=== PATIENT | female | born 1975 | race Caucasian/White ===

== ENCOUNTER 2016-09-03 22:46 | Inpatient (IN) | payer OTHER ==
--- NOTE | ~2016-09-03 | HP ---
Unit #: [id number] #: [id number] Patient: BESS SANDY [id number] [facility] [address] [place] [address] [id number] I MR#: [id number] NAME: BESS SANDY ROOM: 61 Age: 40 Sex: F Admission Date: 09/03/2016 : 1975 Attending Physician: Serge Madrigal Family Admitting Physician: Serge Madrigal Family Primary Care Physician: Bharathi Pereira M.D. HISTORY AND PHYSICAL HISTORY OF PRESENT ILLNESS Bess is a 40 year old admitted to [address] [place] [address] because of her drug use. She smokes spice. 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 PAST SURGICAL HISTORY Nothing reported ALLERGIES No known drug allergies. SOCIAL HISTORY Smokes one pack per day. Drinks alcohol and has a history of illicit drug use to include spice. FAMILY HISTORY Medically noncontributory. REVIEW OF SYSTEMS CONSTITUTIONAL: No fever or chills. HEENT: Denies any sore throat, ear pain or runny nose. CARDIOVASCULAR: Denies chest pain, irregular heart rhythm or palpitations. CHEST: Denies shortness of breath or cough. No hemoptysis. GASTROINTESTINAL: Denies nausea, vomiting, diarrhea or chronic constipation. ENDOCRINE: Denies history of increased thirst or urination. No recent significant weight loss or gain. GENITOURINARY: Denies dysuria, frequency, or hematuria. SKIN: Denies any rashes. HEMATOLOGIC: Denies history of increased bleeding or bruising. MUSCULOSKELETAL: Denies any hot, swollen joints. No generalized muscle pain. NEUROLOGIC: Denies problems with vision or speech. No frequent, severe headaches. No numbness, tingling or weakness in any extremities. Denies loss of bladder or bowel control. CURRENT MEDICATIONS 1. Remeron 30 mg q.h.s. 2. Nicotine patch 14 mg q day 3. Milk of Magnesia p.r.n. Unit #: [id number] #: [id number] Patient: BESS SANDY 4. Maalox p.r.n. 5. Tylenol p.r.n. PHYSICAL EXAMINATION GENERAL: Alert, obese, in no apparent distress. VITAL SIGNS: Blood pressure 110/66, heart rate 64, respirations 16, temperature 98.6. WEIGHT: 170 pounds. HEIGHT: 5'5". SKIN: Warm and dry without rash or lesion. HEENT: Normocephalic. TMs not viewed. Oral and nasal passages clear. Conjunctivae clear. Pupils equal, round and reactive to light and accommodation. Extraocular movements intact. NECK: Supple without lymphadenopathy or thyromegaly. HEART: Regular rate and rhythm without murmur. LUNGS: Clear. ABDOMEN: Soft, nontender. : Not done. EXTREMITIES: No evidence of cyanosis, clubbing or edema. Moves all extremities without focal deficit. NEUROLOGICAL: Grossly within normal limits. Cranial Nerves: II: Visual pascual are intact. III, IV AND : Extraocular movements are intact. Pupils are equal, round and reactive to light. V: Facial sensation is grossly normal. VII: Facial movements and expression are normal. VIII: Auditory acuity grossly intact. IX, X: Uvula is midline. Phonation is normal. XI: Patient shrugs shoulders and turns head normally. XII: Tongue protrudes in the midline. Sensory and Motor Function: Sensory and motor sensation is grossly normal. Motor: moves all extremities well. Coordination: Gait is normal. Deep Tendon Reflexes: Intact. IMPRESSION Psychiatric admission RECOMMENDATIONS PSYCHIATRIC: Per psychiatrist. MEDICAL: I see no contraindications to participating in facility's activities. MEDICAL PROGNOSIS Good. MEDICAL CONDITION Stable. Dictated by... Amelia Parks P.A.-C. for Roc Leo/deyanira TD: 09/04/2016 20:52 Unit #: [id number] #: [id number] Patient: BESS SANDY JOB #: [id number] HISTORY AND PHYSICAL Page 1 of 1 X Amelia Parks HISTORY AND PHYSICAL
--- NOTE | ~2016-09-03 | DS ---
Unit #: [id number] #: [id number] Patient: BESS SANDY [id number] [facility] [address] [place] [address] [id number] I MR#: [id number] NAME: BESS SANDY ROOM: 61 Age: 40 Sex: F Admission Date: 09/03/2016 : 1975 Discharge Date: 09/07/2016 Attending Physician: Bharathi Pereira M.D. Primary Care Physician: Primary Care Physician No DISCHARGE SUMMARY REASON FOR ADMISSION Bess is a 40-year-old woman who reports she has been off her psychiatric medications and has been using a street hallucinogen known as serenity. She was unable to contract for safety and was admitted for stabilization. DIAGNOSTIC STUDIES LABORATORY RESULTS: Please see hospital chart. HOSPITAL COURSE The patient was admitted and placed on suicide precautions. Remeron 30 mg at bedtime was added for depression and she was placed on Bactrim DS for infection. Her RPR was positive, but her FTA was negative. She participated appropriately in unit groups and activities and on the date of discharge, she was able to contract for safety in the outpatient setting. DISCHARGE DIAGNOSES AXIS I: Major depression, stimulant abuse. AXIS II: No diagnosis. AXIS III: Possible ringworm. AXIS IV: AXIS V: DISCHARGE INSTRUCTIONS Follow up with [facility] and primary care physician. She was also offered followup through [facility] in [place], [place]. DISCHARGE MEDICATIONS Remeron 30 mg at bedtime for depression and Bactrim DS one tablet b.i.d. until gone for infection. CONDITION AT DISCHARGE Fair. PROGNOSIS Fair. DIET AND ACITIVITY Ad wili. Unit #: [id number] #: [id number] Patient: BESS SANDY Dictated by... Bharathi Pereira M.D. [facility]/[place] TD: 10/22/2016 01:01 JOB #: [id number] DISCHARGE SUMMARY Page 1 of 1 X Bharathi Pereira MD DISCHARGE SUMMARY
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
--- NOTE | ~2016-09-03 | CO ---
Unit #: [id number] #: [id number] Patient: BESS SANDY [id number] [facility] [address] [place] [address] [id number] I MR#: [id number] NAME: BESS SANDY ROOM: [facility] Age: 40 Sex: F Admission Date: 09/03/2016 : 1975 Attending Physician: Bharathi Pereira M.D. Consultation Date: 09/05/2016 CONSULTATION REPORT SUBJECTIVE Bess is a 40-year-old, admitted because of her drug use. She smokes spice. Upon admission, her RPR was positive. FTA is pending as of 1400 on 09/07/2016. Admission urinalysis showed 4+ bacteria and 10 to 25 wbc's. We treated her with Bactrim DS one p.o. b.i.d. x7 days. In addition, Bess complained of pain and blistering on the end of her tongue. At one point, she put ice on the tip of her tongue. By her report, this reduced the redness and blister, but left a white spot. Upon exam, there is approximately a pea-sized white area on the tip of her tongue with a significant blister to the underside. This area is thought to be caused by her drug use. She smokes spice. She admits that she is frequently so high, she does not even know what she is doing. She has Tylenol p.r.n. She knows that if this does not resolve in the next 48 to 72 hours, then she will need to follow up with her PCP/dentist for further evaluation. Dictated by... Isis Emanuel/lowell TD: 09/07/2016 19:28 JOB #: [id number] CONSULTATION REPORT Page 1 of 1 X Amelia Parks CONSULTATION REPORT
[2016-09-04 09:35] LABS: BASOPHIL# 0.1 X10e3 (0-0.3); BASOPHIL% 0.7 % (0-2.5); EOSINOPHIL% 0.4 % (0.0-7.0); HEMATOCRIT 36.6 % (35.0-45.0); HEMOGLOBIN 11.6 gm/dL (12.0-16.0); LYMPHOCYTE# 3.2 X10e3 (1.0-3.5); LYMPHOCYTE% 41.6 % (17.0-45.0); MEAN CORPUSCULAR HGB CONC 31.6 g/dL (30-36); MEAN PLATELET VOLUME 9.4 FL (6.5-11.5); MONOCYTE# 0.5 X10e3 (0-1.0); MONOCYTE% 7.2 % (3.0-12.0); NEUTROPHIL# 3.8 X10e3 (1.5-7.1); NEUTROPHIL% 50.1 % (40-75); PLATELET COUNT 262 X10e3 (140-420); RED BLOOD COUNT 4.82 X10e (3.90-5.30); RED CELL DISTRIBUTION WIDTH 20.1 % (11.0-15.5); WHITE BLOOD COUNT 7.6 X10e3 (4.0-10.5)
[2016-09-04 09:38] LABS: DIFF IND NO
[2016-09-04 09:44] LABS: URINE APPEARANCE TURBID; URINE BILIRUBIN NEG (NEG); URINE BLOOD 1+ (NEG); URINE COLOR YELLOW; URINE GLUCOSE NEG (NEG); URINE KETONE 1+ (NEG); URINE LEUKOCYTE ESTERASE 2+ (NEG); URINE NITRATE NEG (NEG); URINE PH 6.5 (5-8); URINE PROTEIN NEG (NEG); URINE SPECIFIC GRAVITY 1.025 (1.003-1.035)
[2016-09-04 09:46] LABS: URINE BACTERIA AUWI 4+ (NEGATIVE); URINE SQUAMOUS EPITHELIAL CELL MOD /[HPF]
[2016-09-04 09:56] LABS: THYROID STIMULATING HORMONE 1.87 uIU/ml (0.34-5.60)
[2016-09-04 10:04] LABS: FREE THYROXIN (T4) 0.87 ng/dL (0.58-1.64)
[2016-09-04 10:25] LABS: ALBUMIN SERUM 4.3 g/dL (3.5-5.0); BILIRUBIN,TOTAL 0.6 mg/dL (0.2-2.0); BUN/CREATININE RATIO 12.85; CALCIUM SERUM 9.5 mg/dL (8.4-10.2); CREATININE SERUM 0.7 mg/dL (0.6-1.4); GLOM FILT RATE Estimated 109.9 mL/min (>60); POTASSIUM 3.8 mmol/L (3.5-5.1); PROTEIN TOTAL SERUM 7.7 g/dL (6.0-8.3)
[2016-09-04 10:29] LABS: AMPHETAMINE NEG (NEG); BARBITURATES NEG (NEG); BENZODIAZEPINES NEG (NEG); COCAINE NEG (NEG); MARIJUANA NEG (NEG); OPIATES NEG (NEG); TRICYCLIC ANTIDEPRESSANTS NEG (NEG); U METHADONE NEG (NEG)
[2016-09-05 20:37] LABS: CHLAMYDIA TRACH Not Detected (Not Detected); N GONOR Not Detected (Not Detected)
[2016-09-06 16:19] LABS: HA AB IGM (HEPPAN) Nonreactive (()); HB CORE AB IGM (HEPPAN) Nonreactive (Nonreactive); HB S AG (HEPPAN) Nonreactive (Nonreactive); HEP C AB (HEPPAN) Nonreactive (Nonreactive); HEP C AB SIGNAL TO CUTOFF 0.05 ratio (<1.00)
== END 2016-09-07 16:15 | disposition home or self-care (01) | DRG 881 ==
LOC: P2L 22:46
PROVIDERS: Psychiatry & Neurology Psychiatry
DX: F32.9 Major depressive disorder, single episode, unspecified (principal); R45.851 Suicidal ideations; N39.0 Urinary tract infection, site not specified; F12.10 Cannabis abuse, uncomplicated; F17.210 Nicotine dependence, cigarettes, uncomplicated
CPT/HCPCS: 80053; 80074; 80307; 81003; 84439; 84443; 84703; 85025; 86592; 86780; 87491; 87591; 87806